=== PATIENT | female | born 1975 | race Two or more races ===

== ENCOUNTER 2016-04-15 14:09 | Emergency (ER) | payer SELFPAY ==
[~2016-04-15] VITALS: Ht 172.7 cm; Wt 86.2 kg
[2016-04-15 14:20] VITALS: BP 126/71
[2016-04-15] MEDS ORDERED: LORAZEPAM 1 MG TABLET ONE (14:47)
[2016-04-15] MEDS ORDERED: LORAZEPAM 0.5 MG TABLET PO ONE (15:00)
== END 2016-04-15 14:55 | disposition home or self-care (01) ==
LOC: ER 14:16
DX: F41.9 Anxiety disorder, unspecified (principal)
CPT/HCPCS: A4606; Z7610